=== PATIENT | female | born 1965 | race Caucasian/White ===

== ENCOUNTER 2016-09-24 19:11 | Inpatient (IN) | payer OTHER ==
[~2016-09-24] VITALS: Ht 157.5 cm; Wt 125.5 kg
[~2016-09-24 19:11] MED LIST: INDERAL80 MG PO; LO-DOSE ASPIRIN81 M1 PO; NEXIUM40 MG PO; NORTRIPTYLINE H10 MG PO; OXAYDO5 MG PO; PROAIR HFA8.5 GM IH; PROMETHAZINE HC25 M1 PO; TOPAMAX25 MG PO
[2016-09-24 19:20] LABS: EOSINOPHIL (%) 1.9 % (0-5); EOSINOPHIL COUNT 0.3 K/uL (0-0.3); HEMATOCRIT 42.1 % (36.0-46.0); IMMATURE GRANULOCYTE (%) 0.8 % (0.0-0.7); LYMPHOCYTE COUNT 3.4 K/uL (1.0-2.8); MCHC 34.2 G/DL (30.0-36.0); MCV 96.3 FL (83-99); MEAN PLAT.VOLUME 9.1 uM^3 (9.5-12.4); MONOCYTE (%) 5.4 % (3-12); MONOCYTE COUNT 0.7 K/uL (0-0.8); NEUTROPHIL (%) 65.9 % (45-76); NEUTROPHIL COUNT 8.7 K/uL (1.8-6.4); PLATELET COUNT 326 K/uL (156-360); RBC DIS.WIDTH-CV 13.7 % (11.8-14.6); RBC DIS.WIDTH-SD 46.6 % (39-53); RED BLOOD COUNT 4.37 M/uL (3.80-5.20); WHITE BLOOD COUNT 13.2 K/uL (4.1-10.2)
[2016-09-24 19:30] LABS: AMYLASE 84 IU/L (1-118); CHLORIDE 108 mEq/L (99-109); POTASSIUM 4.2 mEq/L (3.7-5.4); SODIUM 139 mEq/L (136-147)
[2016-09-24 19:32] LABS: GLUCOSE 175 mg/dL (70-99)
[2016-09-24 19:33] LABS: ANION GAP 12 MEQ/L (2-14)
[2016-09-24 19:35] LABS: SERUM ETHYL ALCOHOL < 10 mg/dL
[2016-09-24 19:36] LABS: GFR ESTIMATE (CALCULATED) > 59 mL/min/
[2016-09-24 19:37] LABS: UREA NITROGEN (BUN) 19 mg/dL (9-23)
[2016-09-24 19:39] LABS: LIPASE 48 U/L (1.0-51.0)
[2016-09-24 19:45] LABS: QUANTITATIVE HCG < 4.0 MIU/ML
[2016-09-24] MEDS ORDERED: TOPAMAX50 MG PO (22:08)
[2016-09-24] MEDS ORDERED: FIORICET 50-301 EACH PO (22:09)
[2016-09-24] MEDS ORDERED: NORTRIPTYLINE H75 MG PO (22:10)
[2016-09-24] MEDS ORDERED: ALEVE220 MG PO (22:10)
[2016-09-25] MEDS ORDERED: INDERAL LA80 MG PO (00:04)
[2016-09-25 00:55] LABS: ADD MIUA? NO; BILIRUBIN NEGATIVE; BLOOD NEGATIVE; COLOR YELLOW ((YELLOW)); GLUCOSE (STRIP) NEGATIVE; KETONES 5; LEUKOCYTES NEGATIVE; NITRITE NEGATIVE; PROTEIN (STRIP) NEGATIVE; UCUL ADDED? NO; UROBILINOGEN 0.2 MG/DL (0.2-1.0)
[2016-09-25 01:04] LABS: SPECIFIC GRAVITY 1.055 (1.000-1.030)
[2016-09-25 01:17] LABS: AMPHETAMINE NEGATIVE (500 ng/mL); BARBITURATES PRESUMPTIVE POSITIVE (200 ng/mL); BENZODIAZEPINES NEGATIVE (150 ng/mL); COCAINE NEGATIVE (150 ng/mL); METHADONE NEGATIVE (200 ng/mL); METHAMPHETAMINE NEGATIVE (500 ng/mL); OPIATES (MORPHINE) PRESUMPTIVE POSITIVE (100 ng/mL); OXYCODONE NEGATIVE (100 ng/mL); PHENCYCLIDINE NEGATIVE (25 ng/mL); PROPOXYPHENE NEGATIVE (300 ng/mL); THC CANNABINOIDS PRESUMPTIVE POSITIVE (50 ng/mL); TRICYCLIC ANTIDEPRESSANTS PRESUMPTIVE POSITIVE (300 ng/mL)
[2016-09-25 01:18] LABS: ADD MEDTOX COMMENT Y; INTERNAL CONTROLS VALID? YES
[2016-09-25 05:02] LABS: EOSINOPHIL (%) 0.1 % (0-5); IMMATURE GRANULOCYTE (%) 0.2 % (0.0-0.7); IMMATURE GRANULOCYTE COUNT 0.3 K/uL; LYMPHOCYTE COUNT 1.2 K/uL (1.0-2.8); MCH 32.2 PG (29.0-34.0); MCHC 33.7 G/DL (30.0-36.0); MCV 95.8 FL (83-99); MEAN PLAT.VOLUME 8.9 uM^3 (9.5-12.4); MONOCYTE (%) 5.5 % (3-12); MONOCYTE COUNT 0.8 K/uL (0-0.8); NEUTROPHIL (%) 85.5 % (45-76); NEUTROPHIL COUNT 11.6 K/uL (1.8-6.4); PLATELET COUNT 307 K/uL (156-360); RBC DIS.WIDTH-CV 13.8 % (11.8-14.6); RBC DIS.WIDTH-SD 46.1 % (39-53); RED BLOOD COUNT 4.28 M/uL (3.80-5.20); WHITE BLOOD COUNT 13.6 K/uL (4.1-10.2)
[2016-09-25 05:15] LABS: CHLORIDE 107 mEq/L (99-109); SODIUM 138 mEq/L (136-147)
[2016-09-25 05:16] LABS: MAGNESIUM 1.9 mg/dL (1.3-2.7)
[2016-09-25 05:17] LABS: GLUCOSE 169 mg/dL (70-99)
[2016-09-25 05:19] LABS: ANION GAP 9 MEQ/L (2-14); TOTAL BILIRUBIN 0.3 mg/dL (0.0-1.0)
[2016-09-25 05:21] LABS: ALKALINE PHOSPHATASE 77 IU/L (3-129); GFR ESTIMATE (CALCULATED) > 59 mL/min/
[2016-09-25 05:22] LABS: UREA NITROGEN (BUN) 13 mg/dL (9-23)
[2016-09-25 14:21] VITALS: BP 148/65
[2016-09-25] MEDS ORDERED: NORTRIPTYLINE H75 MG PO (16:28)
[2016-09-26] VITALS (7 sets, daily range): BP systolic 125–177; BP diastolic 70–92
[2016-09-26 06:40] LABS: ALKALINE PHOSPHATASE 69 IU/L (3-129); ANION GAP 7 MEQ/L (2-14); CHLORIDE 104 MEQ/L (99-109); GFR ESTIMATE (CALCULATED) > 59 mL/min/; GLUCOSE 141 mg/dL (70-99); MAGNESIUM 1.9 mg/dl (1.3-2.7); POTASSIUM 4.2 MEQ/L (3.7-5.4); SAMPLE HEMOLYSIS CHECK 0; SAMPLE ICTERIC CHECK 0; SAMPLE LIPEMIA CHECK 0; SODIUM 135 MEQ/L (136-147); TOTAL BILIRUBIN 0.4 MG/DL (0.0-1.0); UREA NITROGEN (BUN) 6 mg/dL (9-23)
[2016-09-26 06:45] LABS: EOSINOPHIL (%) 1.7 % (0-5); EOSINOPHIL COUNT 0.2 K/uL (0-0.3); HEMATOCRIT 37.8 % (36.0-46.0); IMMATURE GRANULOCYTE (%) 0.2 % (0.0-0.7); LYMPHOCYTE COUNT 2.1 K/uL (1.0-2.8); MCH 33.1 PG (29.0-34.0); MCHC 33.9 G/DL (30.0-36.0); MCV 97.7 FL (83-99); MEAN PLAT.VOLUME 9.5 uM^3 (9.5-12.4); MONOCYTE (%) 7.2 % (3-12); MONOCYTE COUNT 0.7 K/uL (0-0.8); NEUTROPHIL (%) 67.7 % (45-76); NEUTROPHIL COUNT 6.2 K/uL (1.8-6.4); PLATELET COUNT 301 K/uL (156-360); RBC DIS.WIDTH-SD 49.9 % (39-53); RED BLOOD COUNT 3.87 M/uL (3.80-5.20)
[2016-09-26 06:56] LABS: WHITE BLOOD COUNT 9.1 K/uL (4.1-10.2)
[2016-09-27] VITALS: BP 154/86
[2016-09-27 04:00] VITALS: BP 150/73
[2016-09-27 08:06] VITALS: BP 138/76
[2016-09-27 16:25] VITALS: BP 142/69
[2016-09-27 20:09] VITALS: BP 130/89
[2016-09-28 00:19] VITALS: BP 145/88
[2016-09-28 03:38] VITALS: BP 121/79
[2016-09-28 08:17] VITALS: BP 131/94
[2016-09-28 11:30] VITALS: BP 138/71
[2016-09-28 16:26] VITALS: BP 144/74
[2016-09-28 19:40] VITALS: BP 127/58
[2016-09-29] VITALS (7 sets, daily range): BP systolic 104–180; BP diastolic 57–80
[2016-09-29 05:29] LABS: EOSINOPHIL (%) 4.6 % (0-5); EOSINOPHIL COUNT 0.4 K/uL (0-0.3); HEMATOCRIT 39.9 % (36.0-46.0); IMMATURE GRANULOCYTE (%) 0.2 % (0.0-0.7); LYMPHOCYTE COUNT 2.2 K/uL (1.0-2.8); MCH 33.7 PG (29.0-34.0); MCHC 34.6 G/DL (30.0-36.0); MCV 97.6 FL (83-99); MEAN PLAT.VOLUME 9.6 uM^3 (9.5-12.4); MONOCYTE COUNT 0.8 K/uL (0-0.8); PLATELET COUNT 321 K/uL (156-360); RBC DIS.WIDTH-CV 13.6 % (11.8-14.6); RBC DIS.WIDTH-SD 48.4 % (39-53); RED BLOOD COUNT 4.09 M/uL (3.80-5.20); WHITE BLOOD COUNT 8.3 K/uL (4.1-10.2)
[2016-09-29 06:45] LABS: ANION GAP 7 MEQ/L (2-14); CHLORIDE 103 MEQ/L (99-109); GFR ESTIMATE (CALCULATED) > 59 mL/min/; GLUCOSE 170 mg/dL (70-99); MAGNESIUM 1.8 mg/dl (1.3-2.7); SAMPLE HEMOLYSIS CHECK 0; SAMPLE ICTERIC CHECK 0; SAMPLE LIPEMIA CHECK 0; SODIUM 132 MEQ/L (136-147); UREA NITROGEN (BUN) 9 mg/dL (9-23)
[2016-09-29] MEDS ORDERED: OXAYDO5 MG PO (10:52)
[2016-09-29] MEDS ORDERED: XARELTO10 MG PO (10:52)
[2016-09-30 04:13] VITALS: BP 138/64
[2016-09-30 07:45] VITALS: BP 126/75
[2016-09-30 11:57] VITALS: BP 126/61
[2016-09-30 16:04] VITALS: BP 120/76
[2016-09-30 20:09] VITALS: BP 133/64
[2016-10-01 00:03] VITALS: BP 125/82
[2016-10-01 04:13] VITALS: BP 121/58
[2016-10-01 07:27] VITALS: BP 105/72
[2016-10-01 11:13] VITALS: BP 130/74
[2016-10-01 15:32] VITALS: BP 128/59
[2016-10-01] MEDS ORDERED: MIRALAX17 GM PO (17:19)
[2016-10-01] MEDS ORDERED: COLACE100 MG PO (17:20)
[2016-10-01] MEDS ORDERED: PERCOCET 5/31 TABLET PO (17:21)
[2016-10-01] MEDS ORDERED: DILAUDID1 MG/ML IV (17:23)
[2016-10-01] MEDS ORDERED: PROMETHAZINE HC25 M1 PO (17:24)
[2016-10-01] MEDS ORDERED: ZOFRAN4 MG PO (17:25)
== END 2016-10-01 16:33 | DRG 562 ==
LOC: TRA 19:11 → 3EAST 21:12 → EDOF 21:12 → 3EAST 09-25 13:46
PROVIDERS: Emergency Medicine; Surgery
DX: S52.251A Displaced comminuted fracture of shaft of ulna, right arm, initial encounter for closed fracture (principal); S06.6X0A Traumatic subarachnoid hemorrhage without loss of consciousness, initial encounter; Z68.43 Body mass index [BMI] 50.0-59.9, adult; R07.2 Precordial pain; S82.841A Displaced bimalleolar fracture of right lower leg, initial encounter for closed fracture; V43.01XA Car driver injured in collision with sport utility vehicle in nontraffic accident, initial encounter; I10 Essential (primary) hypertension; K21.9 Gastro-esophageal reflux disease without esophagitis; G43.909 Migraine, unspecified, not intractable, without status migrainosus; J45.909 Unspecified asthma, uncomplicated; R53.1 Weakness; Z90.49 Acquired absence of other specified parts of digestive tract
CPT/HCPCS: 70450; 71260; 72125; 72129; 72132; 73070; 73090; 73100; 73560; 73600; 73610; 73630; 73700; 74177; 80048; 80053; 81003; 82150; 82306; 83690; 83735; 84100; 84702; 84999; 85025; 86850; 86900; 86901; 94799; 97530 GO; 97530 GP; 99202; 99281; 99285; G0480; J0690; J1170; J1815; J2270; J2405; J2550; J3480; J7030; Q0169

== ENCOUNTER 2016-10-01 16:04 | Inpatient (IN) | payer OTHER ==
[~2016-10-01] VITALS: Ht 158.8 cm; Wt 127.0 kg
[~2016-10-01 16:04] MED LIST changes: +ALEVE220 MG PO; +FIORICET 50-301 EACH PO; +INDERAL LA80 MG PO; +NORTRIPTYLINE H75 MG PO; +TOPAMAX50 MG PO; +XARELTO10 MG PO
[2016-10-01 17:02] VITALS: BP 143/64
[2016-10-01] MEDS ORDERED: MIRALAX17 GM PO (17:19)
[2016-10-01] MEDS ORDERED: COLACE100 MG PO (17:20)
[2016-10-01] MEDS ORDERED: PERCOCET 5/31 TABLET PO (17:21)
[2016-10-01] MEDS ORDERED: DILAUDID1 MG/ML IV (17:23)
[2016-10-01] MEDS ORDERED: PROMETHAZINE HC25 M1 PO (17:24)
[2016-10-01] MEDS ORDERED: ZOFRAN4 MG PO (17:25)
[2016-10-01 23:31] VITALS: BP 119/56
[2016-10-02 05:17] VITALS: BP 126/77
[2016-10-02 16:25] VITALS: BP 123/60
[2016-10-03 05:53] VITALS: BP 123/68
[2016-10-03 14:50] VITALS: BP 124/73
[2016-10-04 05:33] VITALS: BP 120/62
[2016-10-04 15:14] VITALS: BP 127/59
[2016-10-05 05:44] VITALS: BP 117/73
[2016-10-05 15:00] VITALS: BP 136/82
[2016-10-06 05:37] VITALS: BP 110/68
[2016-10-06 15:58] VITALS: BP 135/63
[2016-10-07 05:27] VITALS: BP 108/64
[2016-10-07 15:20] VITALS: BP 97/77
[2016-10-07 18:37] VITALS: BP 105/78
[2016-10-07] MEDS ORDERED: ASCORBIC ACID500 M3 PO (19:02)
[2016-10-07] MEDS ORDERED: FOLIC ACID1 MG PO (19:02)
[2016-10-07] MEDS ORDERED: THERAGRAN1 TABLET PO (19:02)
[2016-10-07 21:00] VITALS: BP 122/56
[2016-10-08 05:36] VITALS: BP 129/82
== END 2016-10-08 11:22 | disposition home health service (06) | DRG 949 ==
LOC: 3WEST 16:04
DX: S06.6X0D Traumatic subarachnoid hemorrhage without loss of consciousness, subsequent encounter (principal); S22.20XD Unspecified fracture of sternum, subsequent encounter for fracture with routine healing; E87.1 Hypo-osmolality and hyponatremia; J84.10 Pulmonary fibrosis, unspecified; S92.141D Displaced dome fracture of right talus, subsequent encounter for fracture with routine healing; S92.121D Displaced fracture of body of right talus, subsequent encounter for fracture with routine healing; D72.829 Elevated white blood cell count, unspecified; J45.909 Unspecified asthma, uncomplicated; K21.9 Gastro-esophageal reflux disease without esophagitis; G43.909 Migraine, unspecified, not intractable, without status migrainosus; S92.111D Displaced fracture of neck of right talus, subsequent encounter for fracture with routine healing; S82.54XD Nondisplaced fracture of medial malleolus of right tibia, subsequent encounter for closed fracture with routine healing; S52.601D Unspecified fracture of lower end of right ulna, subsequent encounter for closed fracture with routine healing; S82.301D Unspecified fracture of lower end of right tibia, subsequent encounter for closed fracture with routine healing; S82.831D Other fracture of upper and lower end of right fibula, subsequent encounter for closed fracture with routine healing; S51.011D Laceration without foreign body of right elbow, subsequent encounter; V43.52XD Car driver injured in collision with other type car in traffic accident, subsequent encounter; F12.90 Cannabis use, unspecified, uncomplicated; F11.90 Opioid use, unspecified, uncomplicated; F19.90 Other psychoactive substance use, unspecified, uncomplicated
CPT/HCPCS: 71250; 73110; 73610; 80053; 85027; 97110 GO; 97530 GP; 99202; Q0169